=== PATIENT | female | born 1970 | race Caucasian/White ===

== ENCOUNTER 2020-06-03 13:11 | Emergency (ER) | payer BC ==
[2020-06-03] MEDS ORDERED: Ondansetron 4 MG Tab.DIS PO ONE ×2 (13:48→18:34)
[2020-06-03] MEDS ORDERED: Sodium Chloride 0.9% 10 ML Syringe FLUSH PRN (13:50)
[2020-06-03] MEDS ORDERED: Sodium Chloride 0.9% 1,000 ML IV ONE (13:50)
--- NOTE | 2020-06-03 14:03 | EDM.PDOC ---
<Camille Patiño M - Last Filed: 06/03/20 15:54> ED HPI GENERAL MEDICAL PROBLEM - General Chief Complaint: General Stated Complaint: COVID TESTED POSTED FEELING FAINT Time Seen by Provider: 06/03/20 13:58 Source of Information: Reports: Patient, Old Records, RN, RN Notes Reviewed, Significant Other History Limitations: Reports: No Limitations - History of Present Illness INITIAL COMMENTS - FREE TEXT/NARRATIVE: Pt here with spouse for n/v, fever 102.5f, chills, loss of appetite, and weakness from COVID + 05-21-20. Pt denies SOB or cough. Able to give accurate history. Spouse is bedside. Onset: Gradual Associated Symptoms: Reports: Diaphoresis, Fever/Chills, Headaches, Loss of Appetite, Nausea/Vomiting, Weakness Bilateral Lower Abdomen Pain Score (Numeric/FACES): 5 - Related Data Allergies Allergy/AdvReac Type Severity Reaction Status Date / Time amlodipine Allergy Numbness Verified 07/19/18 21:47 codeine Allergy Hives Verified 07/19/18 21:47 Penicillins Allergy Hives Verified 07/19/18 21:47 Home Meds: Home Meds Albuterol Sulfate [Proair Hfa] 2 puff IH Q4H PRN 07/19/18 [History] Budesonide [Pulmicort] 0.5 mg IH BID 07/19/18 [History] Furosemide 20 mg PO DAILY 07/19/18 [History] Montelukast [Singulair] 10 mg PO DAILY 07/19/18 [History] Potassium Chloride 20 meq PO DAILY 07/19/18 [History] Topiramate 50 mg PO BID 07/19/18 [History] metOLazone [Metolazone] 1 tab PO ASDIRECTED 07/19/18 [History] Past Medical History HEENT History: Reports: Impaired Vision Cardiovascular History: Reports: High Cholesterol Respiratory History: Reports: Asthma Genitourinary History: Reports: Renal 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: 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 History: Reports: Fracture Other 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 History: fx arm,hand, ankle Endocrine/Metabolic History: Reports: Obesity/BMI 30+ - Infectious Disease History Infectious Disease History: Reports: Chicken Pox - Past Surgical History GI Surgical History: Reports: Cholecystectomy, Hernia, Inguinal Social & Family History - Tobacco Use Smoking Status *Q: Never Smoker - Caffeine Use Caffeine Use: Reports: None - Recreational Drug Use Recreational Drug Use: No - Living Situation & Occupation Living situation: Reports: 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) ED ROS GENERAL - Review of Systems Review Of Systems: See Below Constitutional: Reports: Fever, Chills, Weakness, Fatigue, Decreased Appetite HEENT: Reports: No Symptoms Respiratory: Reports: No Symptoms Cardiovascular: Reports: No Symptoms Endocrine: Reports: No Symptoms GI/Abdominal: Reports: Decreased Appetite, Nausea, Vomiting : Reports: No Symptoms 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: Reports: No Symptoms Skin: Reports: No Symptoms Neurological: Reports: Dizziness, Headache, Weakness Psychiatric: Reports: No Symptoms Hematologic/Lymphatic: Reports: No Symptoms Immunologic: Reports: No Symptoms ED EXAM, GENERAL - Physical Exam Exam: See Below Exam Limited By: No Limitations General Appearance: Alert, Moderate Distress Throat/Mouth: Normal Inspection, Normal Lips Head: Normocephalic Neck: Normal Inspection, Supple, Non-Tender Respiratory/Chest: No Respiratory Distress, Lungs Clear, Normal Breath Sounds, No Accessory Muscle Use Cardiovascular: Regular Rate, Rhythm GI/Abdominal: Soft, Tender, Other (nausea ) (Female) Exam: Deferred Rectal (Female) Exam: Deferred Neurological: Alert, Oriented, CN II-XII Intact Psychiatric: Normal Affect Skin Exam: Warm, Dry, Pallor Course - Re-Assessments/Exams Free Text/Narrative Re-Assessment/Exam: 06/03/20 15:55 Will have pt transferred to [place] based on immunocompromise, CK5, and COVID +. Waiting for bed. Departure - Departure Disposition: DC/Tfer to [facility] 02 Clinical Impression: COVID-19, Dehydration, Renal insufficiency - Discharge Information Referrals: Jada Sr MD [Primary Care Provider] - Forms: ED Department Discharge Care Plan Goals: transfer to [facility] Sepsis Event Note (ED) - Evaluation Sepsis Screening Result: Possible Sepsis Risk <Gayathri Andrade - Last Filed: 06/04/20 07:28> ED ROS GENERAL - Review of Systems Review Of Systems: See Below ED EXAM, GENERAL - Physical Exam Exam: See Below Course - Vital Signs Last Recorded V/S: Last Vital Signs Temp 38.3 C H 06/03/20 18:45 Pulse 97 06/03/20 18:45 Resp 18 06/03/20 18:45 BP 147/82 H 06/03/20 18:45 Pulse Ox 99 06/03/20 18:45 - Orders/Labs/Meds Orders: Active Orders 24 hr Category Date Time Status Peripheral IV Insertion Adult [OM.PC] Routine Oth 06/03/20 13:50 Ordered Labs: Laboratory Tests 06/03/20 06/03/20 06/03/20 Range/Units 14:05 14:05 14:05 WBC 3.2 L (4.5-11.0) K/uL RBC 3.23 L (3.30-5.50) M/uL Hgb 9.1 L (12.0-15.0) g/dL Hct 27.8 L (36.0-48.0) % MCV 86 (80-98) fL MCH 28 (27-31) pg MCHC 33 (32-36) % Plt Count 230 (150-400) K/uL Neut % (Auto) 68 H (36-66) % Lymph % (Auto) 11 L (24-44) % Mayes % (Auto) 17 H (2-6) % Eos % (Auto) 4 (2-4) % Baso % (Auto) 1 (0-1) % D-Dimer, Quantitative (0.0-400.0) ng/mL Sodium 135 L (140-148) mmol/L Potassium 5.1 (3.6-5.2) mmol/L Chloride 103 (100-108) mmol/L Carbon Dioxide 18 L (21-32) mmol/L Anion Gap 19.1 H (5.0-14.0) mmol/L BUN 49 H (7-18) mg/dL Creatinine 3.2 H D (0.6-1.0) mg/dL Est Cr Clr Drug Dosing 15.27 mL/min Estimated GFR (MDRD) 15 L (>60) Glucose 114 H (74-106) mg/dL Lactic Acid 1.1 (0.4-2.0) mmol/L Calcium 8.8 (8.5-10.1) mg/dL Total Bilirubin 0.3 (0.2-1.0) mg/dL AST 27 D (15-37) U/L ALT 21 (12-78) U/L Alkaline Phosphatase 78 D (46-116) U/L Lactate Dehydrogenase (82-234) U/L C-Reactive Protein (0.0-0.3) mg/dL Total Protein 7.2 (6.4-8.2) g/dL Albumin 3.2 L (3.4-5.0) g/dL Globulin 4.0 H (2.3-3.5) g/dL Albumin/Globulin Ratio 0.8 L (1.2-2.2) 06/03/20 06/03/20 06/03/20 Range/Units 14:05 14:05 14:48 WBC (4.5-11.0) K/uL RBC (3.30-5.50) M/uL Hgb (12.0-15.0) g/dL Hct (36.0-48.0) % MCV (80-98) fL MCH (27-31) pg MCHC (32-36) % Plt Count (150-400) K/uL Neut % (Auto) (36-66) % Lymph % (Auto) (24-44) % Mayes % (Auto) (2-6) % Eos % (Auto) (2-4) % Baso % (Auto) (0-1) % D-Dimer, Quantitative 560 H (0.0-400.0) ng/mL Sodium (140-148) mmol/L Potassium (3.6-5.2) mmol/L Chloride (100-108) mmol/L Carbon Dioxide (21-32) mmol/L Anion Gap (5.0-14.0) mmol/L BUN (7-18) mg/dL Creatinine (0.6-1.0) mg/dL Est Cr Clr Drug Dosing mL/min Estimated GFR (MDRD) (>60) Glucose (74-106) mg/dL Lactic Acid (0.4-2.0) mmol/L Calcium (8.5-10.1) mg/dL Total Bilirubin (0.2-1.0) mg/dL AST (15-37) U/L ALT (12-78) U/L Alkaline Phosphatase (46-116) U/L Lactate Dehydrogenase 298 H (82-234) U/L C-Reactive Protein 1.06 H (0.0-0.3) mg/dL Total Protein (6.4-8.2) g/dL Albumin (3.4-5.0) g/dL Globulin (2.3-3.5) g/dL Albumin/Globulin Ratio (1.2-2.2) Meds: Medications Discontinued Medications Generic Name Dose Route Start Last Admin Trade Name Sukh PRN Reason Stop Dose Admin Acetaminophen 0 mg 06/03/20 18:49 06/03/20 18:52 Tylenol PO 06/03/20 18:50 Not Given NOW ONE Acetaminophen 1,000 mg 06/03/20 18:51 06/03/20 18:51 Tylenol Extra Strength PO 06/03/20 18:52 1,000 mg ONETIME ONE Administration Acetaminophen Confirm 06/03/20 18:50 06/03/20 18:52 Tylenol Extra Strength Administered 06/03/20 18:51 Not Given Dose 1,000 mg .ROUTE .STK-MED ONE Sodium Chloride 1,000 mls @ 999 mls/hr 06/03/20 13:50 06/03/20 14:05 Normal Saline IV 06/03/20 14:50 999 mls/hr .BOLUS ONE Administration Ondansetron HCl 4 mg 06/03/20 13:48 06/03/20 14:05 Zofran Odt PO 06/03/20 13:49 4 mg ONETIME ONE Administration Ondansetron HCl 4 mg 06/03/20 18:34 06/03/20 18:44 Zofran Odt PO 06/03/20 18:35 4 mg ONETIME ONE Administration Sodium Chloride 10 ml 06/03/20 13:50 06/03/20 16:06 Saline Flush FLUSH 10 ml ASDIRECTED PRN Administration Keep Vein Open - Re-Assessments/Exams Free Text/Narrative Re-Assessment/Exam: 06/04/20 07:26 pt has significant renal insuff. She is followed by nephrology in [place]. Departure - Departure Time of Disposition: 18:45 Condition: Fair
--- NOTE | 2020-06-03 14:43 | CR ---
CHEST: Portable 06/03/2020 at 2:16 PM CLINICAL HISTORY:Covid COMPARISON:None FINDINGS: Heart size and pulmonary vascularity are normal. There is some vague patchy density in the peripheral aspect of the left lower lung field. There are no effusions. No mass is identified. Impression: Vague patchy density in the periphery of the left lower lung laterally. Infiltrate is not excluded
[2020-06-03] MEDS ORDERED: Acetaminophen 325 MG Tab PO ONE (18:49)
[2020-06-03] MEDS ORDERED: Acetaminophen 500 MG Tab ONE (18:50)
[2020-06-03] MEDS ORDERED: Acetaminophen 500 MG Tab PO ONE (18:51)
== END 2020-06-03 19:02 ==
LOC: JP.ED 13:11
DX: U07.1 COVID-19 (principal); E86.0 Dehydration; N28.9 Disorder of kidney and ureter, unspecified; J45.909 Unspecified asthma, uncomplicated; E66.9 Obesity, unspecified; Z68.42 Body mass index [BMI] 45.0-49.9, adult; Z88.5 Allergy status to narcotic agent; Z88.0 Allergy status to penicillin; Z88.8 Allergy status to other drugs, medicaments and biological substances; Z79.899 Other long term (current) drug therapy
CPT/HCPCS: 36415; 71045; 80053; 83605; 83615; 85025; 85379; 86140; 96360; 99285; A9270; J7040

== ENCOUNTER 2020-06-06 21:19 | Emergency (ER) | payer BC ==
[2020-06-06] MEDS ORDERED: Acetaminophen 325 MG Tab PO PRN (21:49)
[2020-06-06] MEDS ORDERED: Sodium Chloride 0.9% 10 ML Syringe FLUSH PRN (21:50)
--- NOTE | 2020-06-06 23:59 | EDM.PDOC ---
ED HPI GENERAL MEDICAL PROBLEM - General Chief Complaint: Respiratory Problem Stated Complaint: COVID POSITIVE HIGH FEVER LOW OXYGEN Time Seen by Provider: 06/06/20 21:46 Source of Information: Reports: Patient, Old Records History Limitations: Reports: No Limitations - History of Present Illness INITIAL COMMENTS - FREE TEXT/NARRATIVE: Susanne is a 49-year-old female presenting to the ED for increasing shortness of breath. Patient was recently seen and evaluated in the ED on 06/03/2020 by one of my colleagues, Dr. Andrade who found her to be Covid positive with significant immunodeficiency and severe chronic renal failure. The patient was transferred to [facility] for further care and was discharged within the last day to home. She has been experiencing increasing dyspnea even with minimal exertion, fatigue, headache and Covid related symptoms. She has increased fatigue. She continues to have a fever. She continues to have loss of sense of taste and smell. Onset: Gradual Duration: Getting Worse Severity: Moderate Improves with: Reports: None Worsens with: Reports: Breathing, Other (Activity) Associated Symptoms: Reports: Cough, Fever/Chills, Headaches, Loss of Appetite, Malaise, Shortness of Breath, Weakness denies pain Pain Score (Numeric/FACES): 0 - Related Data Allergies Allergy/AdvReac Type Severity Reaction Status Date / Time amlodipine Allergy Numbness Verified 06/06/20 21:40 codeine Allergy Hives Verified 06/06/20 21:40 Penicillins Allergy Hives Verified 06/06/20 21:40 Home Meds: Home Meds Albuterol Sulfate [Proair Hfa] 2 puff IH Q4H PRN 07/19/18 [History] Budesonide [Pulmicort] 0.5 mg IH BID PRN 07/19/18 [History] Furosemide 10 mg PO DAILY 07/19/18 [History] Montelukast [Singulair] 10 mg PO BEDTIME 07/19/18 [History] Ascorbate Calcium [Vitamin C] 500 mg PO BID 06/06/20 [History] Cholecalciferol (Vitamin D3) [Vitamin D3] 1,000 unit PO DAILY 06/06/20 [History] Thiamine HCl [B-1] 100 mg PO DAILY 06/06/20 [History] Zinc Sulfate [Zincate] 1 cap PO DAILY 06/06/20 [History] lisinopriL [Prinivil] 20 mg PO BEDTIME 06/06/20 [History] Past Medical History HEENT History: Reports: Impaired Vision Cardiovascular History: Reports: High Cholesterol Respiratory History: Reports: Asthma Genitourinary History: Reports: Renal 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: 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 History: Reports: Fracture Other 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 History: fx arm,hand, ankle Endocrine/Metabolic History: Reports: Obesity/BMI 30+ - Infectious Disease History Infectious Disease History: Reports: Chicken Pox - Past Surgical History GI Surgical History: Reports: Cholecystectomy, Hernia, Inguinal Social & Family History - Tobacco Use Tobacco Use Status *Q: Never Tobacco User - Caffeine Use Caffeine Use: Reports: None - Recreational Drug Use Recreational Drug Use: No - Living Situation & Occupation Living situation: Reports: 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) ED ROS GENERAL - Review of Systems Review Of Systems: See Below Constitutional: Reports: Fever, Chills, Malaise, Weakness, Fatigue, Decreased Appetite HEENT: Reports: Other (Loss of sense of taste or smell) Respiratory: Reports: Shortness of Breath, Cough Cardiovascular: Reports: Chest Pain Endocrine: Reports: Fatigue GI/Abdominal: Reports: Anorexia : Reports: No Symptoms 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: Reports: Muscle Pain Skin: Reports: No Symptoms Neurological: Reports: Headache Psychiatric: Reports: Anxiety Hematologic/Lymphatic: Reports: Other (Immunosuppressive due to an autoimmune disease) Immunologic: Reports: No Symptoms ED EXAM, GENERAL - Physical Exam Exam: See Below Exam Limited By: No Limitations General Appearance: Alert, Mild Distress Eye Exam: Bilateral Eye: EOMI, PERRL Nose: Nasal Swelling, Nasal Drainage Throat/Mouth: Normal Inspection, Normal Lips, Normal Teeth, Normal Oropharynx, Normal Voice, No Airway Compromise Head: Atraumatic, Normocephalic Neck: Normal Inspection, Supple, Non-Tender, Full Range of Motion. No: Lymphadenopathy (R) Respiratory/Chest: No Respiratory Distress, No Accessory Muscle Use, Chest Non- Tender, Rhonchi (Scattered rhonchi in both bases) Cardiovascular: Normal Peripheral Pulses, Regular Rate, Rhythm, No Edema, No JVD, No Murmur, Tachycardia Peripheral Pulses: 2+: Radial (L), Radial (R), Posterior Tibial (L), Posterior Tibial (R) GI/Abdominal: Normal Bowel Sounds, Soft, Non-Tender, No Organomegaly, No Distention, No Abnormal Bruit Back Exam: Normal Inspection, Full Range of Motion, NT Extremities: Normal Inspection, Normal Range of Motion, Non-Tender, Normal Capillary Refill, No Pedal Edema Neurological: Alert Psychiatric: Anxious Skin Exam: Warm, Dry, Intact, Normal Color, No Rash Lymphatic: No Adenopathy Course - Vital Signs Last Recorded V/S: Last Vital Signs Temp 37.7 C 06/07/20 00:50 Pulse 81 06/07/20 00:50 Resp 12 06/07/20 00:50 BP 128/76 06/07/20 00:50 Pulse Ox 95 06/07/20 00:50 - Orders/Labs/Meds Orders: Active Orders 24 hr Category Date Time Status Chest 1V Frontal [CR] Stat Exams 06/07/20 00:34 Taken PATIENT RETYPE [BBK] Stat Lab 06/06/20 22:40 Results RED BLOOD CELLS LP [BBK] Stat Lab 06/06/20 22:40 Results TYPE AND SCREEN [BBK] Stat Lab 06/06/20 22:40 Results Acetaminophen [TylenoL] Med 06/06/20 21:49 Active 650 mg PO Q4H PRN Sodium Chloride 0.9% [Saline Flush] Med 06/06/20 21:50 Active 10 ml FLUSH ASDIRECTED PRN Isolation [COMM] Stat Oth 06/06/20 21:49 Ordered Saline Lock Insert [OM.PC] Routine Oth 06/06/20 21:50 Ordered Transfuse Red Blood Cells [COMM] Urgent Oth 06/06/20 23:46 Ordered Medication Orders Acetaminophen (Tylenol) 650 mg PO Q4H PRN PRN Reason: Fever Greater Than 101 Last Admin: 06/06/20 22:42 Dose: 650 mg Documented by: STEPHANIE Sodium Chloride (Saline Flush) 10 ml FLUSH ASDIRECTED PRN PRN Reason: Keep Vein Open Last Admin: 06/06/20 23:04 Dose: 10 ml Documented by: STEPHANIE Labs: Laboratory Tests 06/06/20 06/06/20 06/06/20 Range/Units 21:49 22:40 22:41 WBC (4.5-11.0) K/uL RBC (3.30-5.50) M/uL Hgb (12.0-15.0) g/dL Hct (36.0-48.0) % MCV (80-98) fL MCH (27-31) pg MCHC (32-36) % Plt Count (150-400) K/uL Add Manual Diff Neutrophils % (Manual) (36-66) % Band Neutrophils % (5-11) % Lymphocytes % (Manual) (24-44) % Monocytes % (Manual) (2-6) % Eosinophils % (Manual) (2-4) % PT (9.5-12.0) sec INR (0.80-1.20) APTT 23.5 L (27.0-36.0) sec D-Dimer, Quantitative (0.0-400.0) ng/mL Puncture Site Rt.radial ABG pH 7.370 (7.350-7.450) ABG pCO2 27.3 L (35.0-42.0) mmHg ABG pO2 73.8 L (75.0-100.0) mmHg ABG HCO3 15.4 L (22.0-26.0) mmol/L ABG Total CO2 14.8 L (21.0-25.0) mmol/L ABG O2 Saturation 94.3 L (95.0-98.0) % ABG O2 Content 10.3 L (15.0-23.0) %vol ABG Base Excess -8.6 mm/L ABG Hemoglobin 7.8 L (12.0-16.0) g/dL ABG Oxyhemoglobin 92.2 % ABG Carboxyhemoglobin 1.1 (0.0-1.6) % ABG Methemoglobin 1.1 % Osorio Test Passed O2 Delivery Device Room air Sodium (140-148) mmol/L Potassium (3.6-5.2) mmol/L Chloride (100-108) mmol/L Carbon Dioxide (21-32) mmol/L Anion Gap (5.0-14.0) mmol/L BUN (7-18) mg/dL Creatinine (0.6-1.0) mg/dL Est Cr Clr Drug Dosing mL/min Estimated GFR (MDRD) (>60) Glucose (74-106) mg/dL Lactic Acid (0.4-2.0) mmol/L Calcium (8.5-10.1) mg/dL Total Bilirubin (0.2-1.0) mg/dL Direct Bilirubin (0.0-0.2) mg/dL Indirect Bilirubin AST (15-37) U/L ALT (12-78) U/L Alkaline Phosphatase (46-116) U/L Lactate Dehydrogenase (82-234) U/L Creatine Kinase (26-192) U/L Troponin I (0.000-0.056) ng/mL C-Reactive Protein (0.0-0.3) mg/dL NT-Pro-B Natriuret Pep (5-125) pg/mL Total Protein (6.4-8.2) g/dL Albumin (3.4-5.0) g/dL Globulin (2.3-3.5) g/dL Albumin/Globulin Ratio (1.2-2.2) Procalcitonin ng/mL Blood Type O POSITIVE Gel Antibody Screen Negative Crossmatch See Detail 06/06/20 06/06/20 06/06/20 Range/Units 22:41 22:41 22:41 WBC 3.7 L (4.5-11.0) K/uL RBC 2.79 L (3.30-5.50) M/uL Hgb 7.7 L (12.0-15.0) g/dL Hct 23.9 L (36.0-48.0) % MCV 86 (80-98) fL MCH 28 (27-31) pg MCHC 32 (32-36) % Plt Count 238 (150-400) K/uL Add Manual Diff Yes Neutrophils % (Manual) 66 (36-66) % Band Neutrophils % 12 H (5-11) % Lymphocytes % (Manual) 12 L (24-44) % Monocytes % (Manual) 9 H (2-6) % Eosinophils % (Manual) 1 L (2-4) % PT (9.5-12.0) sec INR (0.80-1.20) APTT (27.0-36.0) sec D-Dimer, Quantitative 1090 H (0.0-400.0) ng/mL Puncture Site ABG pH (7.350-7.450) ABG pCO2 (35.0-42.0) mmHg ABG pO2 (75.0-100.0) mmHg ABG HCO3 (22.0-26.0) mmol/L ABG Total CO2 (21.0-25.0) mmol/L ABG O2 Saturation (95.0-98.0) % ABG O2 Content (15.0-23.0) %vol ABG Base Excess mm/L ABG Hemoglobin (12.0-16.0) g/dL ABG Oxyhemoglobin % ABG Carboxyhemoglobin (0.0-1.6) % ABG Methemoglobin % Osorio Test O2 Delivery Device Sodium 134 L (140-148) mmol/L Potassium 4.2 (3.6-5.2) mmol/L Chloride 104 (100-108) mmol/L Carbon Dioxide 15 L (21-32) mmol/L Anion Gap 19.2 H (5.0-14.0) mmol/L BUN 53 H (7-18) mg/dL Creatinine 3.0 H (0.6-1.0) mg/dL Est Cr Clr Drug Dosing 19.59 mL/min Estimated GFR (MDRD) 17 L (>60) Glucose 100 (74-106) mg/dL Lactic Acid (0.4-2.0) mmol/L Calcium 8.0 L (8.5-10.1) mg/dL Total Bilirubin 0.2 (0.2-1.0) mg/dL Direct Bilirubin 0.08 (0.0-0.2) mg/dL Indirect Bilirubin TNP AST 14 L (15-37) U/L ALT 9 L (12-78) U/L Alkaline Phosphatase 71 (46-116) U/L Lactate Dehydrogenase 200 (82-234) U/L Creatine Kinase 33 (26-192) U/L Troponin I (0.000-0.056) ng/mL C-Reactive Protein 1.65 H (0.0-0.3) mg/dL NT-Pro-B Natriuret Pep (5-125) pg/mL Total Protein 6.5 (6.4-8.2) g/dL Albumin 2.9 L (3.4-5.0) g/dL Globulin 3.6 H (2.3-3.5) g/dL Albumin/Globulin Ratio 0.8 L (1.2-2.2) Procalcitonin ng/mL Blood Type Gel Antibody Screen Crossmatch 06/06/20 06/06/20 06/06/20 Range/Units 22:41 22:41 22:41 WBC (4.5-11.0) K/uL RBC (3.30-5.50) M/uL Hgb (12.0-15.0) g/dL Hct (36.0-48.0) % MCV (80-98) fL MCH (27-31) pg MCHC (32-36) % Plt Count (150-400) K/uL Add Manual Diff Neutrophils % (Manual) (36-66) % Band Neutrophils % (5-11) % Lymphocytes % (Manual) (24-44) % Monocytes % (Manual) (2-6) % Eosinophils % (Manual) (2-4) % PT 10.8 (9.5-12.0) sec INR 0.99 (0.80-1.20) APTT (27.0-36.0) sec D-Dimer, Quantitative (0.0-400.0) ng/mL Puncture Site ABG pH (7.350-7.450) ABG pCO2 (35.0-42.0) mmHg ABG pO2 (75.0-100.0) mmHg ABG HCO3 (22.0-26.0) mmol/L ABG Total CO2 (21.0-25.0) mmol/L ABG O2 Saturation (95.0-98.0) % ABG O2 Content (15.0-23.0) %vol ABG Base Excess mm/L ABG Hemoglobin (12.0-16.0) g/dL ABG Oxyhemoglobin % ABG Carboxyhemoglobin (0.0-1.6) % ABG Methemoglobin % Osorio Test O2 Delivery Device Sodium (140-148) mmol/L Potassium (3.6-5.2) mmol/L Chloride (100-108) mmol/L Carbon Dioxide (21-32) mmol/L Anion Gap (5.0-14.0) mmol/L BUN (7-18) mg/dL Creatinine (0.6-1.0) mg/dL Est Cr Clr Drug Dosing mL/min Estimated GFR (MDRD) (>60) Glucose (74-106) mg/dL Lactic Acid 0.8 (0.4-2.0) mmol/L Calcium (8.5-10.1) mg/dL Total Bilirubin (0.2-1.0) mg/dL Direct Bilirubin (0.0-0.2) mg/dL Indirect Bilirubin AST (15-37) U/L ALT (12-78) U/L Alkaline Phosphatase (46-116) U/L Lactate Dehydrogenase (82-234) U/L Creatine Kinase (26-192) U/L Troponin I (0.000-0.056) ng/mL C-Reactive Protein (0.0-0.3) mg/dL NT-Pro-B Natriuret Pep (5-125) pg/mL Total Protein (6.4-8.2) g/dL Albumin (3.4-5.0) g/dL Globulin (2.3-3.5) g/dL Albumin/Globulin Ratio (1.2-2.2) Procalcitonin < 0.05 ng/mL Blood Type Gel Antibody Screen Crossmatch 06/07/20 Range/Units 00:14 WBC (4.5-11.0) K/uL RBC (3.30-5.50) M/uL Hgb (12.0-15.0) g/dL Hct (36.0-48.0) % MCV (80-98) fL MCH (27-31) pg MCHC (32-36) % Plt Count (150-400) K/uL Add Manual Diff Neutrophils % (Manual) (36-66) % Band Neutrophils % (5-11) % Lymphocytes % (Manual) (24-44) % Monocytes % (Manual) (2-6) % Eosinophils % (Manual) (2-4) % PT (9.5-12.0) sec INR (0.80-1.20) APTT (27.0-36.0) sec D-Dimer, Quantitative (0.0-400.0) ng/mL Puncture Site ABG pH (7.350-7.450) ABG pCO2 (35.0-42.0) mmHg ABG pO2 (75.0-100.0) mmHg ABG HCO3 (22.0-26.0) mmol/L ABG Total CO2 (21.0-25.0) mmol/L ABG O2 Saturation (95.0-98.0) % ABG O2 Content (15.0-23.0) %vol ABG Base Excess mm/L ABG Hemoglobin (12.0-16.0) g/dL ABG Oxyhemoglobin % ABG Carboxyhemoglobin (0.0-1.6) % ABG Methemoglobin % Osorio Test O2 Delivery Device Sodium (140-148) mmol/L Potassium (3.6-5.2) mmol/L Chloride (100-108) mmol/L Carbon Dioxide (21-32) mmol/L Anion Gap (5.0-14.0) mmol/L BUN (7-18) mg/dL Creatinine (0.6-1.0) mg/dL Est Cr Clr Drug Dosing mL/min Estimated GFR (MDRD) (>60) Glucose (74-106) mg/dL Lactic Acid (0.4-2.0) mmol/L Calcium (8.5-10.1) mg/dL Total Bilirubin (0.2-1.0) mg/dL Direct Bilirubin (0.0-0.2) mg/dL Indirect Bilirubin AST (15-37) U/L ALT (12-78) U/L Alkaline Phosphatase (46-116) U/L Lactate Dehydrogenase (82-234) U/L Creatine Kinase (26-192) U/L Troponin I < 0.017 (0.000-0.056) ng/mL C-Reactive Protein (0.0-0.3) mg/dL NT-Pro-B Natriuret Pep 220 H (5-125) pg/mL Total Protein (6.4-8.2) g/dL Albumin (3.4-5.0) g/dL Globulin (2.3-3.5) g/dL Albumin/Globulin Ratio (1.2-2.2) Procalcitonin ng/mL Blood Type Gel Antibody Screen Crossmatch Meds: Medications Generic Name Dose Route Start Last Admin Trade Name Freq PRN Reason Stop Dose Admin Acetaminophen 650 mg 06/06/20 21:49 06/06/20 22:42 Tylenol PO 650 mg Q4H PRN Administration Fever Greater Than 101 Sodium Chloride 10 ml 06/06/20 21:50 06/06/20 23:04 Saline Flush FLUSH 10 ml ASDIRECTED PRN Administration Keep Vein Open - Radiology Interpretation Free Text/Narrative:: Chest 2 view x-ray was obtained and compared to previous done on 06/03/2020. There is still fluffy infiltrates in the left lower lobe but no acute changes when compared to previous x-ray. There is no cardiomegaly. There is no pleural effusions. There is no pneumothorax. The bony architecture appears to be within normal limits. - Re-Assessments/Exams Free Text/Narrative Re-Assessment/Exam: 06/07/20 01:04 the patient remains vitally stable, however, she still experiences dyspnea with any activity. I did start her on 2 L via nasal cannula for comfort due to the fact she is significantly anemic with a hemoglobin of 7.7. I did discuss the case with Dr. Virgen from [facility] who accepts the patient in transfer for admission to the Covid unit. The patient did have a type and screen done here which shows her antibody negative. As it will take an hour and a half to get blood prepared, we will defer transfusion as we can get her to [place] quicker than the amount of time he would take to prep the blood and provide it to her. We will have [facility] provide transport to [place]. Patient is in agreement with this plan. Departure - Departure Time of Disposition: 01:15 Disposition: DC/Tfer to Other Condition: Fair Clinical Impression: COVID-19, Chronic renal failure, stage 4 (severe) Anemia Qualifiers: Anemia type: unspecified type Qualified Code(s): D64.9 - Anemia, unspecified - Discharge Information *PRESCRIPTION DRUG MONITORING PROGRAM REVIEWED*: Not Applicable *COPY OF PRESCRIPTION DRUG MONITORING REPORT IN PATIENT LYNDSAY: Not Applicable Referrals: PCP,None [Primary Care Provider] - Forms: ED Department Discharge Sepsis Event Note (ED) - Evaluation Sepsis Screening Result: Possible Sepsis Risk - Focused Exam Vital Signs: Vital Signs Temp Temp Pulse Resp BP Pulse Ox 06/07/20 00:50 37.7 C 81 12 128/76 95 06/07/20 00:04 37.9 C 84 15 114/52 L 95 06/06/20 23:12 37.9 C 06/06/20 22:42 38.9 C H 06/06/20 21:58 38.9 C H 108 H 16 134/78 93 L 06/06/20 21:35 38.9 C H 108 H 16 134/78 93 L - Problem List & Annotations (1) COVID-19 SNOMED Code(s): 664335519 Code(s): U07.1 - COVID-19 Status: Acute Priority: High Current Visit: Yes (2) Anemia SNOMED Code(s): 028042420 Code(s): D64.9 - ANEMIA, UNSPECIFIED Status: Acute Priority: High Current Visit: Yes Qualifiers: Anemia type: unspecified type Qualified Code(s): D64.9 - Anemia, unspecified (3) Chronic renal failure, stage 4 (severe) SNOMED Code(s): 07788660, 040916942 Code(s): N18.4 - CHRONIC KIDNEY DISEASE, STAGE 4 (SEVERE) Status: Acute Priority: High Current Visit: Yes - Problem List Review Problem List Initiated/Reviewed/Updated: Yes - My Orders Last 24 Hours: My Active Orders 06/06/20 21:49 Acetaminophen [TylenoL] 650 mg PO Q4H PRN Isolation [COMM] Stat 06/06/20 21:50 Sodium Chloride 0.9% [Saline Flush] 10 ml FLUSH ASDIRECTED PRN Saline Lock Insert [OM.PC] Routine 06/06/20 22:40 PATIENT RETYPE [BBK] Stat RED BLOOD CELLS LP [BBK] Stat TYPE AND SCREEN [BBK] Stat 06/06/20 23:46 Transfuse Red Blood Cells [COMM] Urgent 06/07/20 00:34 Chest 1V Frontal [CR] Stat - Assessment/Plan Last 24 Hours: My Active Orders 06/06/20 21:49 Acetaminophen [TylenoL] 650 mg PO Q4H PRN Isolation [COMM] Stat 06/06/20 21:50 Sodium Chloride 0.9% [Saline Flush] 10 ml FLUSH ASDIRECTED PRN Saline Lock Insert [OM.PC] Routine 06/06/20 22:40 PATIENT RETYPE [BBK] Stat RED BLOOD CELLS LP [BBK] Stat TYPE AND SCREEN [BBK] Stat 06/06/20 23:46 Transfuse Red Blood Cells [COMM] Urgent 06/07/20 00:34 Chest 1V Frontal [CR] Stat
[2020-06-07] MEDS ORDERED: Dexamethasone 4 MG/ML SDV IVPUSH ONE (01:08)
--- NOTE | 2020-06-07 09:29 | CR ---
CHEST: Portable 06/07/2020 at 12:48 AM CLINICAL HISTORY:Dyspnea on exertion COMPARISON:06/03/2020 FINDINGS: There are patchy bibasal densities. Similar density seen in the left lower lobe on the earlier May study. There is no patchy density in the right lung base. Heart size is upper limits of normal. IMPRESSION: Patchy bibasal densities with new density in the right lower lobe compared to prior study. Pneumonic infiltrates are suspected
== END 2020-06-07 02:10 | disposition other institution (70) ==
LOC: JP.ED 21:19
DX: U07.1 COVID-19 (principal); N18.4 Chronic kidney disease, stage 4 (severe); D63.1 Anemia in chronic kidney disease; J45.909 Unspecified asthma, uncomplicated; E66.9 Obesity, unspecified; Z68.41 Body mass index [BMI] 40.0-44.9, adult; Z88.5 Allergy status to narcotic agent; Z88.8 Allergy status to other drugs, medicaments and biological substances; Z88.0 Allergy status to penicillin
CPT/HCPCS: 36415; 36600; 71045; 80048; 80076; 82550; 82803; 83605; 83615; 83880; 84145; 84484; 85025; 85379; 85610; 85730; 86140; 86850; 86900; 86901; 86920; 86922; 96374; 99285; A9270; J1100

== ENCOUNTER 2020-12-22 10:45 | Emergency (ER) | payer BC ==
[2020-12-22] MEDS ORDERED: HYDROmorphone 0.5 MG/0.5 ML Syringe IVPUSH ONE (12:15)
[2020-12-22] MEDS ORDERED: Sodium Chloride 0.9% 1,000 ML IV SCH (12:15)
--- NOTE | 2020-12-22 12:15 | EDM.PDOC ---
ED HPI GENERAL MEDICAL PROBLEM - General Chief Complaint: Abdominal Pain Stated Complaint: DIVERTICULITIS? Time Seen by Provider: 12/22/20 12:00 Source of Information: Reports: Patient History Limitations: Reports: No Limitations - History of Present Illness INITIAL COMMENTS - FREE TEXT/NARRATIVE: 50-year-old female with 1 episode of diverticulitis in the past, has redeveloped low back pain and left lower quadrant pain over the past 48 hours. Minimal nausea, no vomiting, no diarrhea, no significant fevers or chills. The pain has worsened quite dramatically over the past 6 to 8 hours. She has developed peritoneal irritation, pain with walking. Onset: Gradual Duration: Day(s): (2 days) Location: Reports: Abdomen (Left lower quadrant) Associated Symptoms: Reports: Malaise. Denies: Confusion, Chest Pain, Cough, Fever/Chills, Loss of Appetite, Nausea/Vomiting, Shortness of Breath - Related Data Allergies Allergy/AdvReac Type Severity Reaction Status Date / Time amlodipine Allergy Numbness Verified 12/22/20 11:41 codeine Allergy Hives Verified 12/22/20 11:41 Penicillins Allergy Hives Verified 12/22/20 11:41 Home Meds: Home Meds Albuterol Sulfate [Proair Hfa] 2 puff IH Q4H PRN 07/19/18 [History] Budesonide [Pulmicort] 0.5 mg IH BID PRN 07/19/18 [History] Montelukast [Singulair] 10 mg PO BEDTIME 07/19/18 [History] Ascorbate Calcium [Vitamin C] 500 mg PO BID 06/06/20 [History] Cholecalciferol (Vitamin D3) [Vitamin D3] 1,000 unit PO DAILY 06/06/20 [History] Thiamine HCl [B-1] 100 mg PO DAILY 06/06/20 [History] Zinc Sulfate [Zincate] 1 cap PO DAILY 06/06/20 [History] Phendimetrazine Tartrate 15 mg PO DAILY 12/22/20 [History] Past Medical History HEENT History: Reports: Impaired Vision Cardiovascular History: Reports: High Cholesterol Respiratory History: Reports: Asthma Genitourinary History: Reports: Renal Disease Other Genitourinary History: STAGE 1V KIDNEY DISEASE 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 History: Reports: Fracture Other 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 History: fx arm,hand, ankle Endocrine/Metabolic History: Reports: Obesity/BMI 30+ Hematologic History: Reports: Anemia - Infectious Disease History Infectious Disease History: Reports: Chicken Pox - Past Surgical History GI Surgical History: Reports: Cholecystectomy, Hernia, Inguinal Social & Family History - Tobacco Use Tobacco Use Status *Q: Never Tobacco User Second Hand Smoke Exposure: No - Caffeine Use Caffeine Use: Reports: Energy Drinks - Recreational Drug Use Recreational Drug Use: No - Living Situation & Occupation Living situation: Reports: 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 Denies: Fever, Chills HEENT: Reports: No Symptoms Respiratory: Denies: Shortness of Breath Cardiovascular: Denies: Chest Pain GI/Abdominal: Reports: Abdominal Pain. Denies: Constipation, Diarrhea : Reports: No Symptoms Skin: Reports: No Symptoms Neurological: Reports: No Symptoms Psychiatric: Reports: No Symptoms ED EXAM, GI/ABD - Physical Exam Exam: See Below Exam Limited By: No Limitations General Appearance: Alert, No Apparent Distress (Looks uncomfortable but not distressed) Eyes: Bilateral: Normal Appearance (No jaundice, good hydration) Head: Atraumatic Respiratory/Chest: No Respiratory Distress, Lungs Clear Cardiovascular: Regular Rate, Rhythm. No: Tachycardia GI/Abdominal Exam: Soft, Guarding, Rebound, Tender, Other (Peritoneal irritation, rebound tenderness localized to the left abdomen especially left lower quadrant) Extremities: Normal Inspection Neurological: Alert, Oriented Psychiatric: Normal Affect, Normal Mood Skin Exam: Warm, Dry Course - Vital Signs Last Recorded V/S: Last Vital Signs Temp 98.2 F 12/22/20 11:54 Pulse 84 12/22/20 13:47 Resp 16 12/22/20 13:47 BP 143/87 H 12/22/20 13:47 Pulse Ox 99 12/22/20 13:47 - Orders/Labs/Meds Labs: Laboratory Tests 12/22/20 12/22/20 Range/Units 12:20 12:20 WBC 10.2 (4.5-11.0) K/uL RBC 3.94 (3.30-5.50) M/uL Hgb 10.6 L D (12.0-15.0) g/dL Hct 33.5 L (36.0-48.0) % MCV 85 (80-98) fL MCH 27 (27-31) pg MCHC 32 (32-36) % Plt Count 291 (150-400) K/uL Neut % (Auto) 80 H (36-66) % Lymph % (Auto) 10 L (24-44) % Stanley % (Auto) 8 H (2-6) % Eos % (Auto) 2 (2-4) % Baso % (Auto) 0 (0-1) % Sodium 144 (140-148) mmol/L Potassium 4.5 (3.6-5.2) mmol/L Chloride 104 (100-108) mmol/L Carbon Dioxide 24 (21-32) mmol/L Anion Gap 16.1 H (5.0-14.0) mmol/L BUN 41 H (7-18) mg/dL Creatinine 2.3 H (0.6-1.0) mg/dL Est Cr Clr Drug Dosing 21.02 mL/min Estimated GFR (MDRD) 22 L (>60) Glucose 83 (74-106) mg/dL Calcium 10.1 D (8.5-10.1) mg/dL Meds: Medications Discontinued Medications Generic Name Dose Route Start Last Admin Trade Name Freq PRN Reason Stop Dose Admin Hydromorphone HCl 0.5 mg 12/22/20 12:15 12/22/20 12:59 Hydromorphone 0.5 Mg/0.5 Ml Syringe IVPUSH 12/22/20 12:16 0.5 mg ONETIME ONE Administration Sodium Chloride 1,000 mls @ 500 mls/hr 12/22/20 12:15 12/22/20 12:59 Normal Saline IV 500 mls/hr ASDIRECTED CYNTHIA Administration - Re-Assessments/Exams Free Text/Narrative Re-Assessment/Exam: 12/22/20 13:16 CBC BMP were drawn and patient will likely have to go through the CT scan to rule out diverticulitis versus other sources of abdominal pain. She will be hydrated with saline and given 0.5 mg of IV Dilaudid. 12/22/20 13:42 CT findings were as follows IMPRESSION: 1. Moderate colonic diverticulosis with mild acute diverticulitis of the mid sigmoid colon. There is no abscess. 2. There are right basilar infiltrates consistent with pneumonia. Consider COVID-19. These were discussed with the patient, she will be placed on metronidazole and Bactrim twice daily for 7 days. Also given 10 hydrocodone for extra pain control. Departure - Departure Time of Disposition: 14:08 Disposition: Home, Self-Care 01 Clinical Impression: Diverticulitis Abdominal pain Qualifiers: Abdominal location: left lower quadrant Qualified Code(s): R10.32 - Left lower quadrant pain - Discharge Information Instructions: Diverticulitis, Astx-ya-Qild Referrals: Jada Sr MD [Primary Care Provider] - Forms: ED Department Discharge Care Plan Goals: Take antibiotics as prescribed for 7 days. Use pain medication if needed, drink lots of water and consider stool softeners to avoid constipation. Return if worsening despite treatment or you develop nausea and vomiting and cannot take your medications. Recheck in a few weeks after you return to baseline to dis cuss a colonoscopy or further evaluation that may be necessary. Sepsis Event Note (ED) - Evaluation Sepsis Screening Result: No Definite Risk - Focused Exam Vital Signs: Vital Signs Temp Pulse Resp BP Pulse Ox 12/22/20 13:47 84 16 143/87 H 99 12/22/20 11:54 98.2 F 94 16 198/107 H 100 12/22/20 11:37 98.2 F 94 16 198/107 H 100
--- NOTE | 2020-12-22 13:31 | CRLCT ---
Clinical INDICATION: Left-sided abdominal pain for 2 days. TECHNIQUE: Axial noncontrast CT cuts were performed from above the diaphragm to the below the ischial tuberosities. FINDINGS: There is mild colonic diverticulosis. There is thickening of the mid sigmoid colon with pericolonic edema consistent with mild acute diverticulitis. There is no abscess. The small bowel appears normal. The appendix is not inflamed. There is no free intraperitoneal air or fluid. There has been a cholecystectomy. The liver, spleen, pancreas and, adrenals and kidneys appear normal. There is no hydronephrosis. There are no enlarged retroperitoneal, mesenteric, iliac or inguinal nodes. The uterus and urinary bladder appear normal. There is patchy opacity at the right lung base consistent with pneumonia. Consider COVID-19. There are no lytic or sclerotic skeletal lesions. IMPRESSION: 1. Moderate colonic diverticulosis with mild acute diverticulitis of the mid sigmoid colon. There is no abscess. 2. There are right basilar infiltrates consistent with pneumonia. Consider COVID-19. Please note that all CT scans at this facility use dose modulation, iterative reconstruction, and/or weight-based dosing when appropriate to reduce radiation dose to as low as reasonably achievable. Dictated by Eduardo Yadav MD @ 12/22/2020 1:30:[address] Eduardo Yadav @ Dec 22 2020 1:30PM
== END 2020-12-22 14:09 | disposition home or self-care (01) ==
LOC: JP.ED 10:45
DX: K57.32 Diverticulitis of large intestine without perforation or abscess without bleeding (principal); J45.909 Unspecified asthma, uncomplicated; N18.4 Chronic kidney disease, stage 4 (severe); E66.9 Obesity, unspecified; Z88.8 Allergy status to other drugs, medicaments and biological substances; Z88.5 Allergy status to narcotic agent; Z88.0 Allergy status to penicillin; Z68.41 Body mass index [BMI] 40.0-44.9, adult
CPT/HCPCS: 36415; 74176; 80048; 85025; 96374; 99284; J1170; J7030

== ENCOUNTER 2021-01-01 14:25 | Emergency (ER) | payer BC ==
--- NOTE | 2021-01-01 15:40 | EDM.PDOC ---
ED HPI GENERAL MEDICAL PROBLEM - General Chief Complaint: Abdominal Pain Stated Complaint: STABBING PAIN IN THE LEFT ABD Time Seen by Provider: 01/01/21 15:20 Source of Information: Reports: Patient History Limitations: Reports: No Limitations - History of Present Illness INITIAL COMMENTS - FREE TEXT/NARRATIVE: 50-year-old female who I treated for diverticulitis 2 weeks ago did well with the antibiotic therapy, but started redeveloping symptoms 2 days ago. No fevers or chills but the pain is becoming more intense in the left lower quadrant. She is developing some rebound tenderness. She went into the [facility] for a brief evaluation and she was sent to the emergency room. She is stable but mildly uncomfortable. Onset: Gradual Duration: Day(s): (3 days of symptoms) Location: Reports: Abdomen (Left lower quadrant) Associated Symptoms: Reports: Malaise. Denies: Chest Pain, Fever/Chills, Headaches, Loss of Appetite, Nausea/Vomiting, Shortness of Breath Left Lower Abdomen Pain Score (Numeric/FACES): 8 - Related Data Allergies Allergy/AdvReac Type Severity Reaction Status Date / Time amlodipine Allergy Numbness Verified 01/01/21 15:01 codeine Allergy Hives Verified 01/01/21 15:01 Penicillins Allergy Hives Verified 01/01/21 15:01 Home Meds: Home Meds Albuterol Sulfate [Proair Hfa] 2 puff IH Q4H PRN 07/19/18 [History] Budesonide [Pulmicort] 0.5 mg IH BID PRN 07/19/18 [History] Montelukast [Singulair] 10 mg PO BEDTIME 07/19/18 [History] Ascorbate Calcium [Vitamin C] 500 mg PO BID 06/06/20 [History] Cholecalciferol (Vitamin D3) [Vitamin D3] 1,000 unit PO DAILY 06/06/20 [History] Thiamine HCl [B-1] 100 mg PO DAILY 06/06/20 [History] Zinc Sulfate [Zincate] 1 cap PO DAILY 06/06/20 [History] Phendimetrazine Tartrate 15 mg PO DAILY 12/22/20 [History] Past Medical History HEENT History: Reports: Impaired Vision Cardiovascular History: Reports: High Cholesterol Respiratory History: Reports: Asthma Gastrointestinal History: Reports: Cholelithiasis, Diverticulosis Genitourinary History: Reports: Renal Disease Other Genitourinary History: STAGE 1V KIDNEY DISEASE [employer] SCOUT History: Reports: 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 History: Reports: Fracture Other 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 History: fx arm,hand, ankle Endocrine/Metabolic History: Reports: Obesity/BMI 30+ Hematologic History: Reports: Anemia - Infectious Disease History Infectious Disease History: Reports: Chicken Pox - Past Surgical History GI Surgical History: Reports: Cholecystectomy, Hernia, Inguinal Social & Family History - Tobacco Use Tobacco Use Status *Q: Never Tobacco User - Caffeine Use Caffeine Use: Reports: None - Recreational Drug Use Recreational Drug Use: No - Living Situation & Occupation Living situation: Reports: 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 Denies: Diarrhea, Nausea, Vomiting Skin: Reports: No Symptoms Neurological: Reports: No Symptoms Psychiatric: Reports: No Symptoms ED EXAM, GI/ABD - Physical Exam Exam: See Below Exam Limited By: No Limitations General Appearance: Alert, No Apparent Distress (Looks uncomfortable with certain range of motion or movement but stable) Eyes: Bilateral: Normal Appearance (No jaundice) Respiratory/Chest: No Respiratory Distress, Lungs Clear Cardiovascular: Regular Rate, Rhythm GI/Abdominal Exam: Soft, Tender (She has a localized area of tenderness in the left lower quadrant which causes some peritoneal irritation and mild rebound, no diffuse peritoneal findings) Course - Vital Signs Last Recorded V/S: Last Vital Signs Temp 97.7 F 01/01/21 15:00 Pulse 102 H 01/01/21 15:00 Resp 16 01/01/21 15:00 BP 150/99 H 01/01/21 15:00 Pulse Ox 100 01/01/21 15:00 - Re-Assessments/Exams Free Text/Narrative Re-Assessment/Exam: 01/02/21 11:21 Patient again would like to treat this as an outpatient, she will be switched to clindamycin and Levaquin for 10 full days. She was given 12 additional hydrocodone for extra pain control and encouraged to continue with lots of fluids and stool softeners. She will return if failing outpatient treatment. Eventually she will need a colonoscopy when she stabilizes. She was told to follow-up with her primary in the next few weeks after the antibiotics. Departure - Departure Time of Disposition: 15:43 Disposition: Home, Self-Care 01 Clinical Impression: Diverticulitis - Discharge Information Instructions: Diverticulitis, [id number] Referrals: Jada Sr MD [Primary Care Provider] - Forms: ED Department Discharge Care Plan Goals: Take antibiotics as prescribed for the full 10 days, and follow-up to schedule a colonoscopy as soon as possible after treatment is finished. Drink lots of water and keep stool soft with stool softeners, and return anytime you are worsening like vomiting the medication, fevers, increased pain or other concerns. Sepsis Event Note (ED) - Evaluation Sepsis Screening Result: No Definite Risk
== END 2021-01-01 15:51 | disposition home or self-care (01) ==
LOC: JP.ED 14:25
DX: K57.92 Diverticulitis of intestine, part unspecified, without perforation or abscess without bleeding (principal); J45.909 Unspecified asthma, uncomplicated; D64.9 Anemia, unspecified; E66.9 Obesity, unspecified; Z68.41 Body mass index [BMI] 40.0-44.9, adult; Z88.8 Allergy status to other drugs, medicaments and biological substances; Z88.5 Allergy status to narcotic agent; Z88.0 Allergy status to penicillin; Z79.899 Other long term (current) drug therapy
CPT/HCPCS: 99283

== ENCOUNTER 2021-05-19 16:04 | Emergency (ER) | payer BC ==
--- NOTE | 2021-05-19 18:30 | EDM.PDOC ---
ED HPI GENERAL MEDICAL PROBLEM - General Chief Complaint: Abdominal Pain Stated Complaint: stabbing pain in left side Time Seen by Provider: 05/19/21 18:20 Source of Information: Reports: Patient, Family History Limitations: Reports: No Limitations - History of Present Illness INITIAL COMMENTS - FREE TEXT/NARRATIVE: 50-year-old female with a history of diverticulitis in the past, developed lower abdominal pain yesterday and it is progressively gotten worse over the past 24 hours. No nausea or vomiting, no significant fevers. Pain is become much worse over the past 5 hours, she has developed peritoneal irritation has increased pain with movement or riding in a car. 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: Acetaminophen - Related Data Allergies Allergy/AdvReac Type Severity Reaction Status Date / Time amlodipine Allergy Numbness Verified 05/19/21 18:02 codeine Allergy Hives Verified 05/19/21 18:02 Penicillins Allergy Hives Verified 05/19/21 18:02 Home Meds: Home Meds Albuterol Sulfate [Proair Hfa] 2 puff IH Q4H PRN 07/19/18 [History] Budesonide [Pulmicort] 0.5 mg IH BID PRN 07/19/18 [History] Montelukast [Singulair] 10 mg PO BEDTIME 07/19/18 [History] Ascorbate Calcium [Vitamin C] 500 mg PO BID 06/06/20 [History] Cholecalciferol (Vitamin D3) [Vitamin D3] 1,000 unit PO DAILY 06/06/20 [History] Thiamine HCl [B-1] 100 mg PO DAILY 06/06/20 [History] Zinc Sulfate [Zincate] 1 cap PO DAILY 06/06/20 [History] Phendimetrazine Tartrate 15 mg PO DAILY 12/22/20 [History] Past Medical History HEENT History: Reports: Impaired Vision Cardiovascular History: Reports: High Cholesterol Respiratory History: Reports: Asthma Gastrointestinal History: Reports: Cholelithiasis, Diverticulosis Genitourinary History: Reports: Renal Disease Other Genitourinary History: STAGE 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: 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 History: Reports: Fracture Other 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 History: fx arm,hand, ankle Endocrine/Metabolic History: Reports: Obesity/BMI 30+ Hematologic History: Reports: Anemia - Infectious Disease History Infectious Disease History: Reports: Chicken Pox, Novel Coronavirus - Past Surgical History Head Surgeries/Procedures: Reports: None HEENT Surgical History: Reports: None Cardiovascular Surgical History: Reports: None Respiratory Surgical History: Reports: None GI Surgical History: Reports: Cholecystectomy, Hernia, Inguinal Endocrine Surgical History: Reports: None 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 Surgical History: Reports: None Social & Family History - Caffeine Use Caffeine Use: Reports: None - Living Situation & Occupation Living situation: Reports: 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 Denies: Fever, Chills HEENT: Reports: No Symptoms Respiratory: Denies: Shortness of Breath, Cough Cardiovascular: Denies: Chest Pain, Palpitations GI/Abdominal: Reports: Abdominal Pain, Other (She is a post gastric sleeve patient). Denies: Diarrhea, Vomiting : Reports: No Symptoms, Other (History of renal failure in the past) Skin: Reports: No Symptoms Neurological: Reports: No Symptoms ED EXAM, GI/ABD - Physical Exam Exam: See Below Exam Limited By: No Limitations General Appearance: Alert, Mild Distress (Fairly uncomfortable) Eyes: Bilateral: Normal Appearance (No jaundice) Head: Atraumatic Respiratory/Chest: No Respiratory Distress, Lungs Clear Cardiovascular: Regular Rate, Rhythm GI/Abdominal Exam: Soft, Guarding (Bowel sounds are present, she has no significant palpation tenderness in the upper abdomen on the right side but pain worsens as palpation is lower on the abdomen and she is guarding with rebound tenderness in the left lower quadrant and suprapubic area), Rebound, Tender Course - Vital Signs Last Recorded V/S: Last Vital Signs Temp 97.6 F 05/19/21 17:58 Pulse 72 05/19/21 19:50 Resp 18 05/19/21 19:50 BP 144/81 H 05/19/21 19:50 Pulse Ox 100 05/19/21 19:50 - Orders/Labs/Meds Labs: Laboratory Tests 09/27/21 09/27/21 Range/Units 18:30 18:30 WBC 8.2 (4.5-11.0) K/uL RBC 4.06 (3.30-5.50) M/uL Hgb 11.5 L (12.0-15.0) g/dL Hct 35.9 L (36.0-48.0) % MCV 88 (80-98) fL MCH 28 (27-31) pg MCHC 32 (32-36) % Plt Count 255 (150-400) K/uL Neut % (Auto) 76.0 H (36-66) % Lymph % (Auto) 12.6 L (24-44) % [place] % (Auto) 8.0 H (2-6) % Eos % (Auto) 3.0 (2-4) % Baso % (Auto) 0.4 (0-1) % Sodium 140 (140-148) mmol/L Potassium 4.3 (3.6-5.2) mmol/L Chloride 103 (100-108) mmol/L Carbon Dioxide 24 (21-32) mmol/L Anion Gap 12.7 (5.0-14.0) mmol/L BUN 50 H (7-18) mg/dL Creatinine 2.6 H (0.6-1.0) mg/dL Est Cr Clr Drug Dosing 18.59 mL/min Estimated GFR (MDRD) 19 L (>60) Glucose 77 (74-106) mg/dL Calcium 9.7 (8.5-10.1) mg/dL Meds: Medications Discontinued Medications Generic Name Dose Route Start Last Admin Trade Name Freq PRN Reason Stop Dose Admin Hydromorphone HCl 1 mg 05/19/21 18:53 05/19/21 18:57 Hydromorphone 1 Mg/Ml Syringe IM 05/19/21 18:54 1 mg ONETIME ONE Administration Cefoxitin Sodium 1 gm/ Sodium 50 mls @ 100 mls/hr 05/19/21 19:17 05/19/21 19:49 Chloride IV 05/19/21 19:46 100 mls/hr ONETIME ONE Administration - Re-Assessments/Exams Free Text/Narrative Re-Assessment/Exam: 05/19/21 19:06 CBC and BMP were obtained, CT of the abdomen and pelvis without contrast ordered. 1 mg of IM Dilaudid was given. 05/19/21 19:39 Impression: Acute diverticulitis of the distal descending colon. Adjacent punctate foci of extraluminal air are concerning for microperforation. No evidence of abscess. 05/19/21 19:40 White count was normal but the above findings and CT scan confirmed diverticulitis. Patient was given 1 g of IV Mefoxin, and started on Bactrim DS and metronidazole orally. 05/19/21 20:17 Patient tolerated the IV antibiotic well, she was also started on oral metronidazole and Bactrim DS. She should take these medications as directed for at least 7 days and up to 10 days if needed. Departure - Departure Time of Disposition: 20:49 Disposition: Home, Self-Care 01 Clinical Impression: Diverticulitis - Discharge Information Instructions: Diverticulitis Referrals: Jada Sr MD [Primary Care Provider] - Forms: ED Department Discharge Care Plan Goals: Drink lots of water, start antibiotic as directed tonight with the first dose, then take as directed for 7 days and up to 10 days if needed. Use stronger pain medications if needed for extra pain control initially, and stool softeners will also be beneficial. Return anytime if you feel you are worsening despite treatment such as vomiting the medication or uncontrolled pain. Sepsis Event Note (ED) - Focused Exam Vital Signs: Vital Signs Temp Pulse Resp BP Pulse Ox 05/19/21 19:50 72 18 144/81 H 100 05/19/21 17:58 97.6 F 73 20 154/88 H 100 05/19/21 17:56 97.6 F 73 20 154/88 H 100
[2021-05-19] MEDS ORDERED: HYDROmorphone 1 MG/ML Syringe IM ONE (18:53)
--- NOTE | 2021-05-19 19:39 | CRLCT ---
For Patients: As a result of the Century Cures Act, medical imaging exams and procedure reports are released immediately into your electronic medical record. You may view this report before your referring provider. If you have questions, please contact your health care provider. Indication: Lower abdominal pain Technique: Nonenhanced axial CT imaging through the abdomen and pelvis. Sagittal and coronal reconstructions are provided. Comparison: CT abdomen and pelvis without contrast 12/23/2011 Findings: There is unremarkable noncontrast appearance of the liver, spleen, pancreas, adrenal glands, and kidneys. Cholecystectomy clips are noted. There is normal caliber of the abdominal aorta. No lymphadenopathy is a identified in the abdomen or pelvis. The urinary bladder, uterus, and ovaries are grossly unremarkable. Surgical changes are noted of the stomach. There are no abnormally dilated small bowel loops. The appendix is noninflamed. There is scattered diverticulosis along the length of the colon. Focal fat stranding is noted along the posterior lateral wall of the distal descending colon, centered around an enlarged diverticulum, consistent with acute diverticulitis. There are a few adjacent punctate foci of extraluminal air, consistent with microperforation. There is no evidence abscess. Facet arthropathy is noted in the lower lumbar spine. The osseous structures are otherwise unremarkable. The included lung bases are clear. Impression: Acute diverticulitis of the distal descending colon. Adjacent punctate foci of extraluminal air are concerning for microperforation. No evidence of abscess. Please note that all CT scans at this facility use dose modulation, iterative reconstruction, and/or weight-based dosing when appropriate to reduce radiation dose to as low as reasonably achievable. Dictated by Lacho Davila MD @ 05/19/2021 7:38:03 PM (Electronically Signed)
== END 2021-05-19 20:50 | disposition home or self-care (01) ==
LOC: JP.ED 16:04
DX: K57.32 Diverticulitis of large intestine without perforation or abscess without bleeding (principal); J45.909 Unspecified asthma, uncomplicated; E66.9 Obesity, unspecified; Z68.34 Body mass index [BMI] 34.0-34.9, adult; Z86.16 Personal history of COVID-19; Z88.8 Allergy status to other drugs, medicaments and biological substances; Z88.5 Allergy status to narcotic agent; Z88.0 Allergy status to penicillin; Z79.899 Other long term (current) drug therapy
CPT/HCPCS: 36415; 74176; 80048; 85025; 96365; 96372; 99284; J0694; J1170

== ENCOUNTER 2021-05-25 09:57 | Emergency (ER) | payer BC ==
[2021-05-25] MEDS ORDERED: Polyethylene Glycol 3350 Powder 17 GM Packet PO ONE (10:30)
--- NOTE | 2021-05-25 10:36 | EDM.PDOC ---
ED HPI GENERAL MEDICAL PROBLEM - General Chief Complaint: Abdominal Pain Stated Complaint: DIVERTICULITIS/GETTING WORSE Time Seen by Provider: 05/25/21 10:15 Source of Information: Reports: Patient, Old Records, RN History Limitations: Reports: No Limitations - History of Present Illness INITIAL COMMENTS - FREE TEXT/NARRATIVE: 50 yo female presents with L sided, intermittent abdominal pain. She was seen here last Wednesday and dx with diverticulitis. She followed up in the clinic on Wednesday and was feeling better but mentioned that she was not having BM's. Her antibiotics were changed due to an apparent worsening of her renal fxn. She still is not having BM's, but gets transient relief with simethicone. Pain is worse since Wednesday and is intermittent. No fever or nausea. Onset: Gradual Onset Date: 05/23/21 Duration: Day(s): (2), Getting Worse, Intermittent Location: Reports: Abdomen Quality: Reports: Sharp Severity: Moderate Improves with: Reports: Medication (transient relief with simethicone) Worsens with: Reports: Other (time) Context: Reports: Other (See HPI) Associated Symptoms: Reports: No Other Symptoms. 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 below) (antibiotics, simethicone) Left Lower Abdomen Pain Score (Numeric/FACES): 8 - Related Data Allergies Allergy/AdvReac Type Severity Reaction Status Date / Time amlodipine Allergy Numbness Verified 05/25/21 10:15 codeine Allergy Hives Verified 05/25/21 10:15 Penicillins Allergy Hives Verified 05/25/21 10:15 Home Meds: Home Meds Albuterol Sulfate [Proair Hfa] 2 puff IH Q4H PRN 07/19/18 [History] Budesonide [Pulmicort] 0.5 mg IH BID PRN 07/19/18 [History] Montelukast [Singulair] 10 mg PO BEDTIME 07/19/18 [History] Ascorbate Calcium [Vitamin C] 500 mg PO BID 06/06/20 [History] Cholecalciferol (Vitamin D3) [Vitamin D3] 1,000 unit PO DAILY 06/06/20 [History] Thiamine HCl [B-1] 100 mg PO DAILY 06/06/20 [History] Zinc Sulfate [Zincate] 1 cap PO DAILY 06/06/20 [History] Phendimetrazine Tartrate 15 mg PO DAILY 12/22/20 [History] Acetaminophen/HYDROcodone [HYDROcodone-Acetaminophen 5-325 MG *] 1 tab PO Q6H PRN 05/25/21 [History] Ciprofloxacin [Ciprofloxacin HCl] 500 mg PO DAILY 05/25/21 [History] metroNIDAZOLE [Metronidazole] 500 mg PO TID 05/25/21 [History] Past Medical History HEENT History: Reports: Impaired Vision Cardiovascular History: Reports: High Cholesterol Respiratory History: Reports: Asthma Gastrointestinal History: Reports: Cholelithiasis, Diverticulosis Genitourinary History: Reports: Renal Disease Other Genitourinary History: 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: 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 History: Reports: Fracture Other 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 History: fx arm,hand, ankle Endocrine/Metabolic History: Reports: Obesity/BMI 30+ Hematologic History: Reports: Anemia - Infectious Disease History Infectious Disease History: Reports: Chicken Pox, Novel Coronavirus - Past Surgical History Head Surgeries/Procedures: Reports: None GI Surgical History: Reports: Cholecystectomy, Hernia, Inguinal Social & Family History - Tobacco Use Tobacco Use Status *Q: Never Tobacco User - Caffeine Use Caffeine Use: Reports: None - Recreational Drug Use Recreational Drug Use: No - Living Situation & Occupation Living situation: Reports: 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 Denies: Black Stool, Bloody Stool, Hematemesis, Hematochezia, Melena, Nausea, Vomiting : Reports: No Symptoms 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: Reports: No Symptoms Skin: Reports: No Symptoms Neurological: Reports: No Symptoms ED EXAM, GI/ABD - Physical Exam Exam: See Below Exam Limited By: No Limitations General Appearance: Alert, WD/WN, No Apparent Distress Eyes: Bilateral: Normal Appearance Ears: Normal External Exam, Normal Canal, Hearing Grossly Normal, Normal TMs Nose: Normal Inspection, No Blood Throat/Mouth: Normal Inspection, Normal Lips, Normal Voice, No Airway Compromise Head: Atraumatic, Normocephalic Neck: Normal Inspection Respiratory/Chest: No Respiratory Distress, Lungs Clear, Normal Breath Sounds, No Accessory Muscle Use Cardiovascular: Regular Rate, Rhythm, No Edema GI/Abdominal Exam: Normal Bowel Sounds, Soft, Non-Tender, No Distention. No: Distended Back Exam: Normal Inspection. No: CVA Tenderness (R), CVA Tenderness (L) Extremities: Normal Inspection, Normal Range of Motion, Non-Tender, No Pedal Edema Neurological: Alert, Oriented, CN II-XII Intact, Normal Cognition, No Motor/Sensory Deficits Psychiatric: Normal Affect Skin Exam: Warm, Dry, Intact, Normal Color, No Rash Course - Vital Signs Last Recorded V/S: Last Vital Signs Temp 36.4 C 05/25/21 10:15 Pulse 69 05/25/21 10:15 Resp 16 05/25/21 10:15 BP 131/86 05/25/21 10:15 Pulse Ox 97 05/25/21 10:15 - Orders/Labs/Meds Orders: Active Orders 24 hr Category Date Time Status Enema [RC] ASDIRECTED Care 05/25/21 10:31 Active Meds: Medications Discontinued Medications Generic Name Dose Route Start Last Admin Trade Name Sukh PRN Reason Stop Dose Admin Polyethylene Glycol 34 gm 05/25/21 10:30 05/25/21 10:40 Polyethylene Glycol 3350 Powder 17 Gm Packet PO 05/25/21 10:31 34 gm ONETIME ONE Administration - Re-Assessments/Exams Free Text/Narrative Re-Assessment/Exam: 05/25/21 11:48 Pain is almost completely gone after enema. Departure - Departure Time of Disposition: 11:49 Disposition: Home, Self-Care 01 Condition: Good Clinical Impression: Constipation Qualifiers: Constipation type: slow transit constipation Qualified Code(s): K59.01 - Slow transit constipation - Discharge Information *PRESCRIPTION DRUG MONITORING PROGRAM REVIEWED*: Not Applicable *COPY OF PRESCRIPTION DRUG MONITORING REPORT IN PATIENT LYNDSAY: Not Applicable Instructions: Constipation, Adult, [id number] Referrals: Jada Sr MD [Primary Care Provider] - Forms: ED Department Discharge Additional Instructions: Drink ample fluids and get plenty of fiber in your diet. Use your prescription pain meds sparingly. Recheck as needed. Finish your antibiotics. Sepsis Event Note (ED) - Evaluation Sepsis Screening Result: No Definite Risk - Focused Exam Vital Signs: Vital Signs Temp Pulse Resp BP Pulse Ox 05/25/21 10:15 36.4 C 69 16 131/86 97 05/25/21 10:13 36.4 C 69 16 131/86 97 - My Orders Last 24 Hours: My Active Orders 05/25/21 10:31 Enema [RC] ASDIRECTED - Assessment/Plan Last 24 Hours: My Active Orders 05/25/21 10:31 Enema [RC] ASDIRECTED
== END 2021-05-25 11:58 | disposition home or self-care (01) ==
LOC: JP.ED 09:57
DX: K59.01 Slow transit constipation (principal); J45.909 Unspecified asthma, uncomplicated; E66.9 Obesity, unspecified; Z88.5 Allergy status to narcotic agent; Z88.0 Allergy status to penicillin; Z88.8 Allergy status to other drugs, medicaments and biological substances; Z79.899 Other long term (current) drug therapy; Z68.34 Body mass index [BMI] 34.0-34.9, adult
CPT/HCPCS: 99283; A9270